=== PATIENT | female | born 1930 | race Caucasian/White ===

== ENCOUNTER 2018-01-25 05:39 | Emergency (ER) | payer MEDICARE, SELFPAY ==
[2018-01-25 06:19] LABS: Clarity Clear (Clear); Glucose, Urine (Dipstick) Negative (Negative); Leukocyte Negative (Negative); Nitrite Negative (Negative); Protein, Urine (Dipstick) Negative (Neg-Trace); Specific Gravity, Urine 1.015 (1.005-1.030); pH, Urine 6.5 (5.0-9.0)
[2018-01-25 06:20] LABS: Bilirubin Negative (Negative); Blood, Urine Negative (Negative); Urobilinogen 0.2 mg/dL (0.2-1.0)
[2018-01-25 06:59] LABS: #Eosinphils 0.2 thou/uL (0.0-0.7); #Lymphocytes 1.6 thou/uL (1.20-3.40); #Monocytes 0.6 thou/uL (0.11-0.59); #Neutrophils 5.2 thou/uL (1.40-6.50); %Basophils 0.6 % (0.0-1.0); %Eosinophils 2.3 % (0.0-10.0); %Lymphocytes 20.8 % (21.0-51.0); %Monocytes 7.7 % (0.0-10.0); %Neutrophils 68.5 % (42.0-75.0); Hemoglobin 12.3 g/dL (12.0-16.0); Mean Corpuscular HGB CONC 34.4 g/dL (32.0-36.0); Mean Corpuscular Hemoglobin 31.5 pg (27.0-31.0); Mean Corpuscular Volume 91.5 fL (78.0-98.0); Mean Platelet Volume 6.5 fL (7.4-10.4); Platelet Count 158 thou/uL (130-400); RBC Distribution Width 11.8 % (11.5-14.5); Red Blood Cell (RBC) Count 3.91 mill/uL (4.20-5.40); White Blood Cell (WBC) Count 7.6 thou/uL (4.8-10.8)
[2018-01-25] MEDS ORDERED: Lidocaine 1% PF 5 ML VIAL ONE (07:07)
[2018-01-25 07:09] LABS: ALT (SGPT) 9 U/L (8-55); AST (SGOT) 16 U/L (5-34); Alkaline Phosphatase 65 U/L (40-150); Anion Gap 12 mmol/L (10-20); BUN (Urea Nitrogen) 27 mg/dL (9.8-20.1); Bilirubin, Total 0.6 mg/dL (0.2-1.2); Calc. Creatinine Clearance 0 mL/min (70-130); Calcium 10.1 mg/dL (7.8-10.44); Carbon Dioxide 28 mmol/L (23-31); Chloride 105 mmol/L (98-107); Estimated GFR-MDRD 56; Globulin 2.3 g/dL (2.4-3.5); Glucose 94 mg/dL (83-110); Potassium 4.4 mmol/L (3.5-5.1); Protein, Total 6.3 g/dL (6.0-8.3); Sodium 141 mmol/L (136-145)
--- NOTE | 2018-01-25 07:44 | CT ---
CT OF THE BRAIN WITHOUT CONTRAST: Date: 01/25/[address] was performed. There is a scalp laceration near the vertex of the skull posteriorly. No underlying fracture seen. Sk ull appears intact. No air fluid level in the sphenoid sinus and the mastoid air cells are clear. Steve e mucosal thickening is seen in the ethmoid sinuses. Diffuse atrophy is present. There is mild ventriculomegaly, a little more than I would expect for the degree of atrophy present, but it is presumably longstanding. Profound deep white matter lucency is typical of chronic ischemic changes. No intracranial bleeding or extra-axial hematoma seen. No sign o f acute stroke, mass, or edema. Small strokes would be masked by the chronic ischemic background. IMPRESSION: 1. No acute intracranial findings. 2. Profound chronic ischemic change. 3. Mild ventriculomegaly. POS: HOME
--- NOTE | 2018-01-25 07:46 | CT ---
CT OF THE CERVICAL SPINE: Date: 01/25/[address] of the cervical spine was performed. Axial slices were acquired, then coronal and sagittal reconstructions done. No fracture, dislocation, or acute bony change seen. The C1 to dens distance is normal and the soft t issues are normal in thickness. There is some slight disc space narrowing at C6-C7. There is relatively a small amount of degenerative change in this patient for age. There is some mode rate bilateral foraminal narrowing at C3-C4, mild right foraminal narrowing at C4-C5, and mild left f oraminal narrowing at C5-C6. IMPRESSION: No acute traumatic findings. POS: HOME
== END 2018-01-25 07:37 | disposition home or self-care (01) ==
LOC: BURERS 05:39
DX: S01.01XA Laceration without foreign body of scalp, initial encounter (principal); F03.90 Unspecified dementia, unspecified severity, without behavioral disturbance, psychotic disturbance, mood disturbance, and anxiety; F41.9 Anxiety disorder, unspecified; E78.5 Hyperlipidemia, unspecified; I10 Essential (primary) hypertension; Z79.899 Other long term (current) drug therapy; W17.89XA Other fall from one level to another, initial encounter
CPT/HCPCS: 12001; 36415; 51701; 70450; 72125; 80053; 81003; 84484; 85025; 93005; 94760; A4353; J2001